=== PATIENT | female | born 1975 | race Caucasian/White ===

== ENCOUNTER 2016-12-23 10:01 | Emergency (ER) | payer OTHER ==
[~2016-12-23] VITALS: Ht 160 cm; Wt 92.7 kg
[2016-12-23] MEDS ORDERED: MOTRIN800 MG PO (12:21)
[2016-12-23] MEDS ORDERED: VALIUM5 MG PO (12:21)
[2016-12-23] MEDS ORDERED: ULTRACET1 TABLET PO (12:21)
[2016-12-23 12:43] VITALS: BP 162/95
== END 2016-12-23 12:43 | disposition home or self-care (01) ==
LOC: EME 10:01
DX: S29.012A Strain of muscle and tendon of back wall of thorax, initial encounter (principal); S96.912A Strain of unspecified muscle and tendon at ankle and foot level, left foot, initial encounter; S90.32XA Contusion of left foot, initial encounter; W01.0XXA Fall on same level from slipping, tripping and stumbling without subsequent striking against object, initial encounter
CPT/HCPCS: 73630; 99281; 99282